=== PATIENT | male | born 1955 | race American Indian/Alaskan Native ===

== ENCOUNTER 2022-12-18 10:09 | Emergency (ER) | payer OTHER ==
[~2022-12-18] VITALS: Ht 162.6 cm; Wt 88.5 kg
[~2022-12-18 10:09] MED LIST: CIPROFLOXACIN500 MG PO; INTESTINEX1 CA1 PO; METRONIDAZOLE500 MG PO; NABUMETONE500 MG PO; PERCOCET 5/3251 TAB PO
[2022-12-18] MEDS ORDERED: LOPRESSOR25 MG PO (10:34)
[2022-12-18] MEDS ORDERED: SYNTHROID125 MCG PO (10:34)
[2022-12-18] MEDS ORDERED: ATORVASTATIN CA10 MG PO (10:35)
[2022-12-18] MEDS ORDERED: ADCIRCA20 MG PO (10:35)
== END 2022-12-18 11:47 | disposition home or self-care (01) ==
LOC: ER 10:09
DX: K64.9 Unspecified hemorrhoids (principal); I10 Essential (primary) hypertension; E03.8 Other specified hypothyroidism; Z88.0 Allergy status to penicillin; Z91.013 Allergy to seafood

== ENCOUNTER 2025-06-01 10:18 | Emergency (ER) | payer OTHER ==
[~2025-06-01] VITALS: Ht 165.1 cm; Wt 90.7 kg
[~2025-06-01 10:18] MED LIST changes: +ADCIRCA20 MG PO; +ATORVASTATIN CA10 MG PO; +LOPRESSOR25 MG PO; +SYNTHROID125 MCG PO
[2025-06-01] MEDS ORDERED: 0.9 % SODIUM CHLORIDE 1,000 ML IV STA (11:08)
[2025-06-01] MEDS ORDERED: FAMOTIDINE/PF 20 MG/2 ML VIAL IV STA (11:09)
[2025-06-01] MEDS ORDERED: LEVALBUTEROL HCL 1.25 MG/3 ML SOLUTION IH SCH (11:15)
[2025-06-01] MEDS ORDERED: METHYLPREDNISOLONE SOD SUCC 125 MG VIAL IV ONE (11:15)
[2025-06-01] MEDS ORDERED: IPRATROPIUM BROMIDE 0.5 MG/2.5 ML AMPUL.NEB IH SCH (11:15)
[2025-06-01] MEDS ORDERED: BENZONATATE 200 MG CAPSULE PO ONE (11:15)
[2025-06-01] MEDS ORDERED: AZITHROMYCIN 500 MG VIAL IV ONE ×2 (11:15→12:22)
[2025-06-01] MEDS ORDERED: IPRATROPIUM BROMIDE 0.5 MG/2.5 ML AMPUL.NEB IH ONE (11:48)
[2025-06-01] MEDS ORDERED: LEVALBUTEROL HCL 0.63 MG/3 ML SOLUTION IH ONE (11:48)
[2025-06-01] MEDS ORDERED: FAMOTIDINE/PF 20 MG/2 ML VIAL ONE (12:22)
[2025-06-01] MEDS ORDERED: METHYLPREDNISOLONE SOD SUCC 125 MG VIAL ONE (12:22)
[2025-06-01] MEDS ORDERED: WATER FOR INJ.,BACTERIOSTATIC 30 ML VIAL IJ ONE (12:24)
[2025-06-01 13:03] LABS: BASO % 0.4 % (0.1-1.2); EOS # 0.26 (0.04-0.54); EOS % 3.7 % (0.7-7.0); LYMPH # 1.48 (1.18-3.74); LYMPH % 20.9 % (19.3-53.1); MEAN PLATELET VOLUME 9.70 fl (9.4-12.4); MONO # 0.94 (0.24-0.82); NEUT # 4.35 (1.56-6.13); NEUT % 61.3 % (34.0-71.1); RED CELL DISTRIBUTION WIDTH 13.6 % (11.6-14.4)
[2025-06-01 13:04] LABS: MONO % 13.3 % (4.7-12.5)
[2025-06-01 13:14] LABS: COVID-19 AG NEGATIVE (NEGATIVE)
[2025-06-01 13:34] LABS: BUN CREA RATIO 20.0 (7.0-25.0); CREATININE SERUM 0.85 mg/dL (0.70-1.30); GFR 89.11; GLUCOSE FASTING 99.0 mg/dL (65-100); OSMOLALITY SERUM 288.0 MOSM/KG (275-295)
[2025-06-01 13:55] LABS: ERYTHROCYTE SEDIMENTATION RATE 26 mm/hr (0-20)
[2025-06-01] MEDS ORDERED: BENZONATATE200 M1 PO (15:31)
[2025-06-01] MEDS ORDERED: MEDROLPACK PO (15:31)
[2025-06-01] MEDS ORDERED: AZITHROMYCIN500 MG PO (15:31)
[2025-06-01] MEDS ORDERED: IPRATROPIU0.2 MG/1 M IH (15:31)
[2025-06-01] MEDS ORDERED: ALBUTEROL2.5 MG/3 M IH (15:31)
== END 2025-06-01 17:11 | disposition home or self-care (01) ==
LOC: ER 10:19
PROVIDERS: General Practice
DX: J45.901 Unspecified asthma with (acute) exacerbation (principal); Z88.0 Allergy status to penicillin; Z91.013 Allergy to seafood; I10 Essential (primary) hypertension; Z20.822 Contact with and (suspected) exposure to COVID-19